=== PATIENT | female | born 1935 | race Caucasian/White ===

== ENCOUNTER 2020-05-08 08:23 | Emergency (ER) | payer MEDICARE ==
[~2020-05-08] VITALS: Ht 167.6 cm; Wt 79.4 kg
[~2020-05-08 08:23] MED LIST: CARDIZEM CD240 MG PO; CIPRO500 MG PO; COLACE 100 MG100 MG PO; ENOXAPARIN40 MG/0.1 INJECTION; FERROUS SULFAT325 M1 PO; METAMUCIL PAC1 UDPK1 PO; NOLVADEX20 MG PO; NORCO 7.5-3251 EACH PO; PRAVASTATIN SOD20 MG PO; PRINIVIL20 MG PO; XANAX 0.5 MG0.5 M1 PO; XARELTO20 MG PO
[2020-05-08] MEDS ORDERED: ELIQUIS2.5 MG PO (08:43)
[2020-05-08 08:44] LABS: URINE BILIRUBIN NEGATIVE (Negative); URINE BLOOD NEGATIVE (Negative); URINE CLARITY CLEAR; URINE COLOR YELLOW; URINE GLUCOSE-RANDOM NEGATIVE (Negative); URINE KETONES NEGATIVE (Negative); URINE LEUKOCYTES TRACE (Negative); URINE NITRITE NEGATIVE (Negative); URINE PROTEIN NEGATIVE (Negative); URINE SPECIFIC GRAVITY 1.015 (1.005-1.030); URINE UROBILINOGEN 0.2 E.U./dl (0.2-1.0)
[2020-05-08] MEDS ORDERED: SERTRALINE HCL100 MG PO (08:44)
[2020-05-08] MEDS ORDERED: TOPROL XL25 MG PO (08:44)
[2020-05-08 08:56] LABS: BACTERIA 1-9 Few /HPF (None Seen); CASTS None Seen /LPF (None Seen); CRYSTALS None Seen /LPF (None Seen); SQUAMOUS 0-3 Few /LPF (0-3); URINE RBC 0-2 Rare /HPF (0-2); URINE WBC 0-5 Rare /HPF (0-5)
[2020-05-08 09:21] LABS: ABSOLUTE BASOPHILS 0.1 thou/uL (0.0-0.2); ABSOLUTE EOSINOPHILS 0.2 thou/uL (0.0-0.7); ABSOLUTE LYMPHOCYTES 0.6 thou/uL (0.8-5.3); ABSOLUTE MONOCYTES 0.6 thou/uL (0.0-1.2); ABSOLUTE NEUTROPHILS 4.4 thou/uL (1.6-8.1); BASOPHILS 1.1 %; EOSINOPHILS 3.1 %; HEMATOCRIT 37.4 % (37.0-47.0); HEMOGLOBIN 12.4 gm/dL (12.0-15.0); LYMPHOCYTES 10.1 %; MCH 29.4 pg (26.0-34.0); MCHC 33.2 g/dL (28.0-37.0); MCV 88.7 fL (80.0-100.0); MONOCYTES 10.1 %; MPV 8.5 fl. (7.2-11.1); NUCLEATED RBCS 0 /100WBC; PLATELET COUNT* 195 thou/uL (150-400); POLYS 75.6 %; RBC 4.21 mil/uL (4.20-5.00); RDW-CV 14.2 % (10.5-14.5); WBC 5.9 thou/uL (4.0-11.0)
[2020-05-08 09:27] LABS: CREATININE 0.7 mg/dL (0.6-1.3); POTASSIUM 4.4 mmol/L (3.5-5.1)
[2020-05-08 09:31] LABS: ALBUMIN 3.4 g/dL (3.4-5.0); TOTAL BILIRUBIN 0.5 mg/dL (<0.1-1.0); TOTAL PROTEIN 6.6 g/dL (6.4-8.2)
[2020-05-08] MEDS ORDERED: KEFLEX500 M1 PO (10:36)
[2020-05-08 10:45] VITALS: BP 148/81
== END 2020-05-08 10:46 | disposition home or self-care (01) ==
LOC: M.ERS 08:23
PROVIDERS: Emergency Medicine
DX: N39.0 Urinary tract infection, site not specified (principal); I10 Essential (primary) hypertension; R82.81 Pyuria; Z90.89 Acquired absence of other organs; Z96.659 Presence of unspecified artificial knee joint

== ENCOUNTER 2020-05-09 10:31 | Emergency (ER) | payer MEDICARE ==
[~2020-05-09] VITALS: Ht 167.6 cm; Wt 79.4 kg
[~2020-05-09 10:31] MED LIST changes: +ELIQUIS2.5 MG PO; +KEFLEX500 M1 PO; +SERTRALINE HCL100 MG PO; +TOPROL XL25 MG PO
[2020-05-09 10:52] LABS: ABSOLUTE BASOPHILS 0.1 thou/uL (0.0-0.2); ABSOLUTE EOSINOPHILS 0.1 thou/uL (0.0-0.7); ABSOLUTE LYMPHOCYTES 0.8 thou/uL (0.8-5.3); ABSOLUTE MONOCYTES 0.5 thou/uL (0.0-1.2); ABSOLUTE NEUTROPHILS 3.3 thou/uL (1.6-8.1); BASOPHILS 1.1 %; EOSINOPHILS 2.9 %; HEMATOCRIT 38.5 % (37.0-47.0); HEMOGLOBIN 12.9 gm/dL (12.0-15.0); LYMPHOCYTES 16.7 %; MCH 29.8 pg (26.0-34.0); MCHC 33.4 g/dL (28.0-37.0); MCV 89.2 fL (80.0-100.0); MONOCYTES 10.5 %; MPV 7.8 fl. (7.2-11.1); NUCLEATED RBCS 0 /100WBC; PLATELET COUNT* 191 thou/uL (150-400); POLYS 68.8 %; RBC 4.31 mil/uL (4.20-5.00); RDW-CV 14.1 % (10.5-14.5); WBC 4.9 thou/uL (4.0-11.0)
[2020-05-09 11:03] LABS: CALCIUM 8.5 mg/dL (8.5-10.1); CREATININE 0.7 mg/dL (0.6-1.3); POTASSIUM 3.8 mmol/L (3.5-5.1)
[2020-05-09 11:08] LABS: ALBUMIN 3.5 g/dL (3.4-5.0); TOTAL BILIRUBIN 0.7 mg/dL (<0.1-1.0); TOTAL PROTEIN 6.9 g/dL (6.4-8.2)
[2020-05-09 12:45] LABS: URINE BILIRUBIN NEGATIVE (Negative); URINE BLOOD NEGATIVE (Negative); URINE CLARITY CLEAR; URINE COLOR YELLOW; URINE GLUCOSE-RANDOM NEGATIVE (Negative); URINE KETONES NEGATIVE (Negative); URINE LEUKOCYTES-REFLEX TRACE (Negative); URINE NITRITE-REFLEX NEGATIVE (Negative); URINE PROTEIN 1+ (Negative); URINE UROBILINOGEN 0.2 E.U./dl (0.2-1.0)
[2020-05-09 12:54] LABS: AMORPHOUS PHOSPHATES Moderate /LPF (None Seen); BACTERIA-REFLEX 1-9 Few /HPF (None Seen); CASTS None Seen /LPF (None Seen); CRYSTALS None Seen /LPF (None Seen); SQUAMOUS 0-3 Few /LPF (0-3); URINE RBC 0-2 Rare /HPF (0-2); URINE WBC-REFLEX 0-5 Rare /HPF (0-5)
[2020-05-09 13:15] VITALS: BP 138/68
--- NOTE | 2020-05-09 14:54 | EKG ---
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 : 1935 Requested By: Joe Hendrickson Order Number: [id number] MD: Herb Jain Measurements Intervals [place] Rate: 68 P: 10 NH: 239 QRS: -32 QRSD: 99 T: 18 QT: 442 QTc: 471 Interpretive Statements Sinus rhythm Prolonged NH interval Left axis deviation Abnormal R-wave progression, late transition Baseline wander in lead(s) II,III,aVF Compared to ECG 02/18/2017 19:33:15 no change Electronically Signed On 05-09-2020 14:54:19 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
--- NOTE | 2020-05-09 14:55 | EKG ---
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1935 Requested By: Joe Hendrickson Order Number: [id number] MD: Herb Jain Measurements Intervals [place] Rate: 65 P: 35 AR: 242 QRS: -9 QRSD: 97 T: -27 QT: 434 QTc: 452 Interpretive Statements Sinus rhythm Prolonged AR interval Nonspecific T abnormalities, inferior leads artifact noted Electronically Signed On 05-09-2020 14:55:17 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
== END 2020-05-09 13:15 | disposition home or self-care (01) ==
LOC: M.ERS 10:31
PROVIDERS: Emergency Medicine Emergency Medical Services
DX: R55 Syncope and collapse (principal); I10 Essential (primary) hypertension; Z96.659 Presence of unspecified artificial knee joint; Z90.89 Acquired absence of other organs

== ENCOUNTER 2020-11-02 08:06 | Emergency (ER) | payer MEDICARE ==
[~2020-11-02] VITALS: Ht 170.2 cm; Wt 88.5 kg
--- NOTE | ~2020-11-02 | EMS ---
[facility] [address] [place] [address] EMS Patient Care Report Name: TANIYA MI Room: [facility] Kaleb#: [id number] Admission: 11/02/20 Attend Phys: Discharge: 11/02/20 Date of : 35 Report #: [id number] THIS REPORT FOR: //name// Report Transmitted: 11/02/2020 18:06 EMS Care Summary [facility] [place] Incident [id number] @ 11/02/2020 07:20 Incident Location [address] [place] [address] Patient Taniya Mi Female, 85 Years 1935 Patient Address [address] [place] [address] Patient History Hypertension (HTN),Pacemaker/AICD,Malignant neoplasm of breast of unspecified site, Patient Allergies No known allergies, Patient Medications Eliquis, Lisinopril, Sertraline, Metoprolol, Chief Complaint Urination related symptom Disposition Transported No Lights/[place] Dispatch Reason Sick Person Transported To [facility] Narrative Dispatched for female experiencing UTI symptoms, arrive and find patient laying right lateral recumbent in bed. Patient was alert and greeted EMS when we entered the room, patient was visibly flushed, she did have hot to the touch [facility] [address] [place] [address] EMS Patient Care Report Name: TANIYA MI Room: [facility]#: [id number] Admission: 11/02/20 Attend Phys: Discharge: 11/02/20 Date of : 35 Report #: [id number] skin, with a strong left radial pulse. Patient answered questions appropriately when asked. Patient states she has been experiencing UTI symptoms, such as dizziness and N/V, for about a week. She had seen her PCP and was finally diagnosed with an UTI. She was given medication for it just yesterday. As of today she has been having episodes of vomiting and was not able to keep down the antibiotic or even her usual medications. Primary assessment completed. Obtained basic vitals and a secondary assessment. Patient stood and walked to the cot with minimal assistance from EMS. Fasten all safety straps and loaded into ambulance. Gained IV access and placed patient on the four lead. Administered Zofran and began transporting to [place]. En route, patient did not have any more complaints of nausea and her blood pressure lowered. She did not have any complaints of pain or discomfort either. Gave radio report to [place]; arrived and unloaded patient without incident, took her to ER room 16. Patient scooted herself to the hospital bed without assistance or incident. Gave report to receiving nurse and obtained all needed signatures. Initial Vitals @07:45Temp: 98.55900373109157I, @07:42P: 101,R: 16,BP: 161/87, @07:59P: 112,R: 16,BP: 145/99, @07:42GCS: 15, @07:59GCS: 15, @07:40 @07:48Glucose: -2, Assessments @07:40MENTAL:SKIN:HEENT:LUNG SOUNDS:ABDOMEN:PELVIS//GI:EXTREMITIES:PULSE:NEURO: Impression Urinary Tract Infection (UTI) Procedures @07:52Ondansetron - 4.000 Milligrams (mg) - Intravenous (IV)Response: Improved@07:48 cc () Site: Hand-LeftResponse: UnchangedSucceeded Timeline 07:20,Call Received 07:20,Dispatch Notified 07:20,Psap Call 07:20,Dispatched 07:20,En Route 07:38,On Scene 07:40,At Patient 07:40,BP: / M,PULSE: ,RR: R,SPO2: Ox,ETCO2: ,BG: ,PAIN: ,GCS: , 07:42,BP: 161/87 M,PULSE: 101,RR: 16 R,SPO2: Ox,ETCO2: ,BG: ,PAIN: ,GCS: , [place] [address] EMS Patient Care Report Name: TANIYA MI Room: [facility]#: [id number] Admission: 11/02/20 Attend Phys: Discharge: 11/02/20 Date of : 35 Report #: [id number] 07:42,BP: / M,PULSE: ,RR: R,SPO2: Ox,ETCO2: ,BG: ,PAIN: ,GCS: 15, 07:45,BP: / M,PULSE: ,RR: R,SPO2: Ox,ETCO2: ,BG: ,PAIN: ,GCS: , 07:48, cc Site: Hand-Left,Response: UnchangedSucceeded, 07:48,BP: / M,PULSE: ,RR: R,SPO2: Ox,ETCO2: ,BG: -2,PAIN: ,GCS: , 07:52,Ondansetron - 4.000 Milligrams (mg) - Intravenous (IV),Response: Improved 07:52,Depart Scene 07:59,BP: 145/99 M,PULSE: 112,RR: 16 R,SPO2: Ox,ETCO2: ,BG: ,PAIN: ,GCS: , 07:59,BP: / M,PULSE: ,RR: R,SPO2: Ox,ETCO2: ,BG: ,PAIN: ,GCS: 15, 08:02,At Destination 08:16,Call Closed Disclaimer v1.1 Copyright 2020 [employer] This EMS Care Summary contains data elements from the applicable legal record (which may be displayed differently). It is designed to provide pertinent information for the following purposes: continuity of care, clinical quality, and state data reporting. The complete legal record is available to ED staff and administrators of the receiving hospital in [employer]'s Patient Tracker. All data is provided "as is."
--- NOTE | ~2020-11-02 | EMS ---
[facility] [address] [place] [address] EMS Patient Care Report Name: TANIYA MI [facility] Kaleb#: [id number] Admission: 11/02/20 Attend Phys: Discharge: 11/02/20 Date of : 35 Report #: [id number] THIS REPORT FOR: //name// Report Transmitted: 11/02/2020 18:05 EMS Care Summary [facility] [place] Incident [id number] @ 11/02/2020 07:20 Incident Location [address] [place] [address] Patient Taniya Mi Female, 85 Years 1935 Patient Address [address] [place] [address] Patient History Hypertension (HTN),Pacemaker/AICD,Malignant neoplasm of breast of unspecified site, Patient Allergies No known allergies, Patient Medications Eliquis, Lisinopril, Sertraline, Metoprolol, Chief Complaint Urination related symptom Disposition Transported No Lights/[place] Dispatch Reason Sick Person Transported To [facility] Narrative Dispatched for female experiencing UTI symptoms, arrive and find patient laying right lateral recumbent in bed. Patient was alert and greeted EMS when we entered the room, patient was visibly flushed, she did have hot to the touch [facility] [address] [place] [address] EMS Patient Care Report Name: TANIYA MI Room: [facility]#: [id number] Admission: 11/02/20 Attend Phys: Discharge: 11/02/20 Date of : 35 Report #: [id number] skin, with a strong left radial pulse. Patient answered questions appropriately when asked. Patient states she has been experiencing UTI symptoms, such as dizziness and N/V, for about a week. She had seen her PCP and was finally diagnosed with an UTI. She was given medication for it just yesterday. As of today she has been having episodes of vomiting and was not able to keep down the antibiotic or even her usual medications. Primary assessment completed. Obtained basic vitals and a secondary assessment. Patient stood and walked to the cot with minimal assistance from EMS. Fasten all safety straps and loaded into ambulance. Gained IV access and placed patient on the four lead. Administered Zofran and began transporting to [place]. En route, patient did not have any more complaints of nausea and her blood pressure lowered. She did not have any complaints of pain or discomfort either. Gave radio report to [place]; arrived and unloaded patient without incident, took her to ER room 16. Patient scooted herself to the hospital bed without assistance or incident. Gave report to receiving nurse and obtained all needed signatures. Initial Vitals @07:45Temp: 98.24523477348293P, @07:42P: 101,R: 16,BP: 161/87, @07:59P: 112,R: 16,BP: 145/99, @07:42GCS: 15, @07:59GCS: 15, @07:40 @07:48Glucose: -2, Assessments @07:40MENTAL:SKIN:HEENT:LUNG SOUNDS:ABDOMEN:PELVIS//GI:EXTREMITIES:PULSE:NEURO: Impression Urinary Tract Infection (UTI) Procedures @07:52Ondansetron - 4.000 Milligrams (mg) - Intravenous (IV)Response: Improved@07:48 cc () Site: Hand-LeftResponse: UnchangedSucceeded Timeline 07:20,Call Received 07:20,Dispatch Notified 07:20,Psap Call 07:20,Dispatched 07:20,En Route 07:38,On Scene 07:40,At Patient 07:40,BP: / M,PULSE: ,RR: R,SPO2: Ox,ETCO2: ,BG: ,PAIN: ,GCS: , 07:42,BP: 161/87 M,PULSE: 101,RR: 16 R,SPO2: Ox,ETCO2: ,BG: ,PAIN: ,GCS: , [place] [address] EMS Patient Care Report Name: TANIYA MI Room: [facility]#: [id number] Admission: 11/02/20 Attend Phys: Discharge: 11/02/20 Date of : 35 Report #: [id number] 07:42,BP: / M,PULSE: ,RR: R,SPO2: Ox,ETCO2: ,BG: ,PAIN: ,GCS: 15, 07:45,BP: / M,PULSE: ,RR: R,SPO2: Ox,ETCO2: ,BG: ,PAIN: ,GCS: , 07:48, cc Site: Hand-Left,Response: UnchangedSucceeded, 07:48,BP: / M,PULSE: ,RR: R,SPO2: Ox,ETCO2: ,BG: -2,PAIN: ,GCS: , 07:52,Ondansetron - 4.000 Milligrams (mg) - Intravenous (IV),Response: Improved 07:52,Depart Scene 07:59,BP: 145/99 M,PULSE: 112,RR: 16 R,SPO2: Ox,ETCO2: ,BG: ,PAIN: ,GCS: , 07:59,BP: / M,PULSE: ,RR: R,SPO2: Ox,ETCO2: ,BG: ,PAIN: ,GCS: 15, 08:02,At Destination 08:16,Call Closed Disclaimer v1.1 Copyright 2020 [employer] This EMS Care Summary contains data elements from the applicable legal record (which may be displayed differently). It is designed to provide pertinent information for the following purposes: continuity of care, clinical quality, and state data reporting. The complete legal record is available to ED staff and administrators of the receiving hospital in [employer]'s Patient Tracker. All data is provided "as is."
[2020-11-02 08:35] LABS: ABSOLUTE LYMPHOCYTES 0.6 thou/uL (0.8-5.3); ABSOLUTE MONOCYTES 0.6 thou/uL (0.0-1.2); ABSOLUTE NEUTROPHILS 6.3 thou/uL (1.6-8.1); BASOPHILS 0.7 %; EOSINOPHILS 0.5 %; HEMATOCRIT 37.7 % (37.0-47.0); HEMOGLOBIN 13.1 gm/dL (12.0-15.0); LYMPHOCYTES 7.4 %; MCH 29.9 pg (26.0-34.0); MCHC 34.7 g/dL (28.0-37.0); MCV 86.1 fL (80.0-100.0); MONOCYTES 8.2 %; MPV 8.5 fl. (7.2-11.1); NUCLEATED RBCS 0 /100WBC; PLATELET COUNT* 228 thou/uL (150-400); POLYS 83.2 %; RBC 4.38 mil/uL (4.20-5.00); RDW-CV 13.9 % (10.5-14.5); WBC 7.5 thou/uL (4.0-11.0)
[2020-11-02 08:47] LABS: CALCIUM 8.6 mg/dL (8.5-10.1); CREATININE 0.7 mg/dL (0.6-1.3); POTASSIUM 3.4 mmol/L (3.5-5.1)
[2020-11-02 08:51] LABS: ALBUMIN 3.7 g/dL (3.4-5.0); TOTAL BILIRUBIN 0.7 mg/dL (<0.1-1.0); TOTAL PROTEIN 7.2 g/dL (6.4-8.2)
[2020-11-02 09:12] LABS: URINE BILIRUBIN NEGATIVE (Negative); URINE BLOOD NEGATIVE (Negative); URINE CLARITY CLEAR; URINE COLOR YELLOW; URINE GLUCOSE-RANDOM NEGATIVE (Negative); URINE KETONES 1+ (Negative); URINE LEUKOCYTES-REFLEX TRACE (Negative); URINE NITRITE-REFLEX NEGATIVE (Negative); URINE PROTEIN NEGATIVE (Negative); URINE UROBILINOGEN 0.2 E.U./dl (0.2-1.0)
[2020-11-02 09:32] LABS: SQUAMOUS 0-3 Few /LPF (0-3); URINE WBC-REFLEX 0-5 Rare /HPF (0-5)
[2020-11-02 09:33] LABS: CASTS None Seen /LPF (None Seen); CRYSTALS None Seen /LPF (None Seen); URINE RBC 0-2 Rare /HPF (0-2)
--- NOTE | 2020-11-02 09:46 | EKG ---
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: : 1935 Requested By: Lauro Anthony Order Number: [id number] MD: Krishna Kirkland Measurements Intervals [place] Rate: 88 P: 12 MT: 251 QRS: -45 QRSD: 98 T: 44 QT: 407 QTc: 493 Interpretive Statements Sinus rhythm Ventricular premature complex Prolonged MT interval LAD, consider left anterior fascicular block Abnormal R-wave progression, late transition Borderline prolonged QT interval Compared to ECG 05/09/2020 12:15:41 Ventricular premature complex(es) now present T-wave abnormality no longer present Electronically Signed On 11-02-2020 9:46:06 CDT by Krishna Kirkland [email or web address] <ELECTRONICALLY SIGNED> By: Krishna Kirkland MD, [facility] 11/02/20945 6 6 Krishna Kirkland MD, [facility] /EPI
[2020-11-02] MEDS ORDERED: ZOFRAN ODT4 MG DISSOLVE (10:04)
[2020-11-02 10:55] VITALS: BP 150/80
== END 2020-11-02 10:55 | disposition home or self-care (01) ==
LOC: M.ERS 08:06
PROVIDERS: Family Medicine
DX: R11.2 Nausea with vomiting, unspecified (principal); I10 Essential (primary) hypertension; F41.9 Anxiety disorder, unspecified; Z90.89 Acquired absence of other organs; Z90.13 Acquired absence of bilateral breasts and nipples; Z98.890 Other specified postprocedural states; Z79.899 Other long term (current) drug therapy